=== PATIENT | male | born 1935 | race Asian ===

== ENCOUNTER 2017-03-07 08:42 | Emergency (ER) | payer MEDICARE, OTHER ==
[~2017-03-07] VITALS: Ht 162.6 cm; Wt 69.1 kg
[~2017-03-07 08:42] MED LIST: METF850T2 PO; ROSI4TAB28 PO; SIMV-259 PO
[2017-03-07] MEDS ORDERED: METO25XL PO (08:44)
[2017-03-07 09:33] LABS: BASOPHILS % (AUTO) 2.1 % (0.0-2.0); EOSINOPHILS % (AUTO) 2.7 % (1.0-6.0); HEMOGLOBIN 14.8 g/dL (13.5-17.5); LYMPHOCYTES # (AUTO) 1.4 K/uL (1.0-4.8); LYMPHOCYTES % (AUTO) 25.7 % (22.0-44.0); MEAN CORPUSCULAR HEMOGLOBIN 31.3 pg (26.0-34.0); MEAN CORPUSCULAR HGB CONC 33.6 G/dL (31.0-37.0); MEAN CORPUSCULAR VOLUME 93 fL (80-100); MONOCYTES # (AUTO) 0.5 K/uL (0.1-1.0); MONOCYTES % (AUTO) 8.9 % (2.0-9.0); NEUTROPHILS # (AUTO) 3.3 K/uL (1.8-7.7); NEUTROPHILS % (AUTO) 60.6 % (40.0-70.0); PLATELET COUNT (AUTO) 180 K/uL (150-450); RED BLOOD CELL COUNT(AUTO) 4.73 MIL/uL (4.50-5.90); WHITE BLOOD COUNT (AUTO) 5.4 K/uL (4.5-11.0)
[2017-03-07 09:43] LABS: GLUCOSE,POINT OF CARE 294 MG/DL (70-110)
[2017-03-07 09:53] LABS: CALCIUM, TOTAL 8.8 mg/dL (8.8-10.5); CREATININE 1.37 mg/dL (0.60-1.30); POTASSIUM 4.4 mmol/L (3.5-5.1)
[2017-03-07 09:58] LABS: BILIRUBIN,TOTAL 0.5 mg/dL (0.1-1.0); TOTAL PROTEIN, SERUM 7.9 g/dL (6.4-8.2)
[2017-03-07] MEDS ORDERED: IOVERSOL 350 MG/ML 100 ML VIAL ONE (10:25)
[2017-03-07] MEDS ORDERED: SODIUM CHLORIDE 0.9% 100 ML ONE (10:26)
[2017-03-07 10:51] VITALS: BP 146/84
[2017-03-07 11:48] LABS: GLUCOSE,POINT OF CARE 287 MG/DL (70-110)
== END 2017-03-07 11:37 | disposition home or self-care (01) ==
LOC: EMS 08:43
DX: R42 Dizziness and giddiness (principal); M54.2 Cervicalgia; H93.11 Tinnitus, right ear; E11.9 Type 2 diabetes mellitus without complications; I10 Essential (primary) hypertension
CPT/HCPCS: 36415; 70498; 80053; 82948; 82962; 84484; 85025; 93005; 99285; J7050; Q9967

== ENCOUNTER 2019-12-14 19:50 | Emergency (ER) | payer MEDICARE, OTHER ==
[~2019-12-14] VITALS: Ht 162.6 cm; Wt 63.6 kg
[~2019-12-14 19:50] MED LIST changes: +METF-445 PO; -METF850T2 PO; +METO25XL PO; -ROSI4TAB28 PO; -SIMV-259 PO
[2019-12-14 21:29] LABS: GLUCOSE,POINT OF CARE 267 MG/DL (70-110)
[2019-12-14 21:36] LABS: BASOPHILS % (AUTO) 0.5 % (0.0-2.0); EOSINOPHILS % (AUTO) 0 % (1.0-6.0); HEMATOCRIT 40.8 % (41-53); HEMOGLOBIN 13.5 g/dL (13.5-17.5); LYMPHOCYTES # (AUTO) 0.6 K/uL (1.0-4.8); LYMPHOCYTES % (AUTO) 5.3 % (22.0-44.0); MEAN CORPUSCULAR HEMOGLOBIN 31.5 pg (26.0-34.0); MEAN CORPUSCULAR HGB CONC 33.2 G/dL (31.0-37.0); MEAN CORPUSCULAR VOLUME 95 fL (80-100); MONOCYTES # (AUTO) 1.4 K/uL (0.1-1.0); MONOCYTES % (AUTO) 11.6 % (2.0-9.0); NEUTROPHILS # (AUTO) 9.7 K/uL (1.8-7.7); NEUTROPHILS % (AUTO) 82.6 % (40.0-70.0); PLATELET COUNT (AUTO) 161 K/uL (150-450); RED CELL DISTRIBUTION WIDTH 12.8 % (11.5-14.5)
[2019-12-14 22:15] LABS: CALCIUM, TOTAL 8.6 mg/dL (8.8-10.5); CREATININE 1.7 mg/dL (0.60-1.30); POTASSIUM 3.9 mmol/L (3.5-5.1)
[2019-12-14 22:21] LABS: ALBUMIN 3.8 g/dL (3.4-5.0); BILIRUBIN,TOTAL 0.9 mg/dL (0.1-1.0); TOTAL PROTEIN, SERUM 8.2 g/dL (6.4-8.2)
[2019-12-14 22:58] VITALS: BP 137/66
[2019-12-14 23:07] LABS: APPEARANCE,URINE CLOUDY (CLEAR); BILIRUBIN,URINE NEGATIVE (NEGATIVE); GLUCOSE, URINE (UA) >=1000 mg/dL (NEGATIVE); KETONES,URINE NEGATIVE (NEGATIVE); LEUKOCYTE ESTERASE ,URINE MODERATE (NEGATIVE); NITRATE,URINE NEGATIVE (NEGATIVE); OCCULT BLOOD,URINE LARGE (NEGATIVE); PROTEIN,URINE POS 1+ (NEGATIVE); UROBILINOGEN,URINE 0.2 mg/dL (<=1.0)
[2019-12-14 23:15] LABS: BACTERIA,URINE Many /HPF (None Seen); WBC,URINE 51-100 /HPF (0-5)
[2019-12-14 23:22] LABS: SQUAMOUS EPITHELIAL CELL,UR Few /LPF (None Seen)
[2019-12-15] MEDS ORDERED: LEVOFLOXACIN 500 MG TABLET PO ONE (00:15)
[2019-12-15] MEDS ORDERED: CEPHALEXIN MONOHYDRATE 500 MG CAPSULE PO ONE (00:15)
[2019-12-15] MEDS ORDERED: PHENAZOPYRIDINE HCL 100 MG TABLET PO ONE (00:15)
== END 2019-12-15 00:50 | disposition home or self-care (01) ==
LOC: EMS 19:50
DX: N39.0 Urinary tract infection, site not specified (principal); E11.65 Type 2 diabetes mellitus with hyperglycemia; N28.9 Disorder of kidney and ureter, unspecified; I10 Essential (primary) hypertension; Z79.84 Long term (current) use of oral hypoglycemic drugs
CPT/HCPCS: 87086

== ENCOUNTER → 2020-03-13 | Outpatient (CLI) | payer MEDICARE, OTHER ==
[~2020-03-13] MED LIST changes: +ASPI-728 PO; +ATOR10TA69 PO; +ATOR10TA84 PO; +ISOS30TA6 PO; +LEVO750T68 PO; -METF-445 PO; +PIOG15TA6 PO
== END | disposition home or self-care (01) ==
LOC: RADMN 09:31
PROVIDERS: ATTEND Neurological Surgery
DX: M50.222 Other cervical disc displacement at C5-C6 level (principal); M43.12 Spondylolisthesis, cervical region; M48.02 Spinal stenosis, cervical region; M89.38 Hypertrophy of bone, other site; M25.78 Osteophyte, vertebrae
CPT/HCPCS: 72141

== ENCOUNTER 2020-06-19 20:19 | Emergency (ER) | payer MEDICARE, OTHER ==
[~2020-06-19] VITALS: Ht 162.6 cm; Wt 68.6 kg
[2020-06-19 22:22] VITALS: BP 136/80
== END 2020-06-19 22:22 | disposition home or self-care (01) ==
LOC: EMS 20:19
DX: S13.9XXA Sprain of joints and ligaments of unspecified parts of neck, initial encounter (principal); S20.211A Contusion of right front wall of thorax, initial encounter; M13.811 Other specified arthritis, right shoulder; E11.9 Type 2 diabetes mellitus without complications; I10 Essential (primary) hypertension; Z79.82 Long term (current) use of aspirin; V49.9XXA Car occupant (driver) (passenger) injured in unspecified traffic accident, initial encounter; Y93.89 Activity, other specified; Y92.89 Other specified places as the place of occurrence of the external cause; Y99.8 Other external cause status
CPT/HCPCS: 70450; 72125; 71046; 71046-TC

== ENCOUNTER 2024-07-18 22:08 | Inpatient (IN) | payer MEDICARE, OTHER ==
[~2024-07-18] VITALS: Ht 162.6 cm; Wt 70.5 kg
[~2024-07-18 22:08] MED LIST changes: +ASPI-1450 PO; -ASPI-728 PO; +ATOR10TA PO; -ATOR10TA84 PO; -ISOS30TA6 PO; +ISOS30TA92 PO
[2024-07-18 22:55] LABS: GLUCOMETER DEV NAME(LOC) ERT.6; GLUCOSE,POINT OF CARE 171 MG/DL (70-110)
[2024-07-18 23:34] LABS: BASOPHILS % (AUTO) 0.9 % (0.0-2.0); EOSINOPHILS % (AUTO) 0.2 % (1.0-6.0); HEMATOCRIT 45.1 % (41-53); HEMOGLOBIN 14.8 g/dL (13.5-17.5); LYMPHOCYTES # (AUTO) 0.8 K/uL (1.0-4.8); LYMPHOCYTES % (AUTO) 16.2 % (22.0-44.0); MEAN CORPUSCULAR HEMOGLOBIN 31.4 pg (26.0-34.0); MEAN CORPUSCULAR HGB CONC 32.7 G/dL (31.0-37.0); MEAN CORPUSCULAR VOLUME 96 fL (80-100); MONOCYTES # (AUTO) 0.3 K/uL (0.1-1.0); MONOCYTES % (AUTO) 6.7 % (2.0-9.0); NEUTROPHILS # (AUTO) 3.9 K/uL (1.8-7.7); PLATELET COUNT (AUTO) 165 K/uL (150-450); RED CELL DISTRIBUTION WIDTH 13.7 % (11.5-14.5); WHITE BLOOD COUNT (AUTO) 5.2 K/uL (4.5-11.0)
[2024-07-18] MEDS: MECLIZINE HCL 25 MG TABLET PO ONE (23:42)
[2024-07-18 23:43] LABS: ANION GAP 14 mmol/L (8-16); CALCIUM, TOTAL 8.4 mg/dL (8.8-10.5); CARBON DIOXIDE 24 mmol/L (22-29); CHLORIDE 102 mmol/L (98-107); CREATININE 1.77 mg/dL (0.60-1.30); GLOMERULAR FILTR. RATE CALC 37 mL/min (>60); GLUCOSE,RANDOM 181 mg/dL (70-110); POTASSIUM 5.1 mmol/L (3.5-5.1); SODIUM SERUM 140 mmol/L (136-145); UREA NITROGEN, BLOOD 34 mg/dL (7-18)
[2024-07-18 23:55] LABS: B-TYPE NATRIURETIC PEPTIDE 262 pg/mL (0-100)
[2024-07-19 00:03] LABS: TROPONIN I-HIGH SENSITIVITY 178 ng/L (<76)
[2024-07-19 02:11] LABS: TROPONIN I-HIGH SENSITIVITY 196 ng/L (<76)
[2024-07-19 07:30] LABS: APPEARANCE,URINE CLEAR (CLEAR); BILIRUBIN,URINE NEGATIVE (NEGATIVE); COLOR,URINE LIGHT YELLOW (YELLOW); GLUCOSE, URINE (UA) >=1000 mg/dL (NEGATIVE); KETONES,URINE 40-60 mg/dL (NEGATIVE); LEUKOCYTE ESTERASE ,URINE NEGATIVE (NEGATIVE); NITRATE,URINE NEGATIVE (NEGATIVE); OCCULT BLOOD,URINE NEGATIVE (NEGATIVE); PROTEIN,URINE 30-70 mg/dL (NEGATIVE); UROBILINOGEN,URINE <=1.0 mg/dL (<=1.0)
[2024-07-19 07:37] LABS: BACTERIA,URINE None Seen /HPF (None Seen); RBC,URINE None Seen /HPF (0-2); SQUAMOUS EPITHELIAL CELL,UR Few /LPF (None Seen); WBC,URINE None Seen /HPF (0-5)
[2024-07-19 10:11] LABS: GLUCOMETER DEV NAME(LOC) ER.7; GLUCOSE,POINT OF CARE 159 MG/DL (70-110)
[2024-07-19 10:11] LABS: GLUCOMETER DEV NAME(LOC) ER.7; GLUCOSE,POINT OF CARE 149 MG/DL (70-110)
[2024-07-19 15:00] VITALS: BP 126/64; PULSE 74; RESP 18; TEMP 97.7; O2SAT 98
[2024-07-19] MEDS ORDERED: IPRATROPIUM BROMIDE 0.5 MG/2.5 ML NEB SOLUTION NEB PRN (15:45)
[2024-07-19] MEDS ORDERED: ZOLPIDEM TARTRATE 5 MG TABLET PO PRN (15:45)
[2024-07-19] MEDS ORDERED: MAGNESIUM HYDROXIDE SUSPENSION 30 ML UDCUP PO PRN (15:45)
[2024-07-19] MEDS ORDERED: HYDROCODONE/ACETAMINOPHEN 5-325 MG TABLET PO PRN (15:45)
[2024-07-19] MEDS ORDERED: ONDANSETRON HCL 4 MG/2 ML VIAL IVP PRN (15:45)
[2024-07-19] MEDS ORDERED: ALBUTEROL SULFATE 2.5 MG/0.5 ML NEB SOLUTION NEB PRN (15:45)
[2024-07-19] MEDS ORDERED: BISACODYL 10 MG RECTAL RECTAL SUPPOSITORY PR PRN (15:45)
[2024-07-19] MEDS ORDERED: ACETAMINOPHEN 325 MG TABLET PO PRN (15:45)
[2024-07-19] MEDS ORDERED: MORPHINE SULFATE 2 MG/ML SYRINGE IVP PRN (15:45)
[2024-07-19] MEDS: HEPARIN SODIUM,PORCINE 5,000 UNITS/ML VIAL SQ SCH (16:24)
[2024-07-19] MEDS ORDERED: INSULIN LISPRO 100 UNITS/ML SQ PRN (16:45)
[2024-07-19] MEDS ORDERED: DEXTROSE 50%-WATER 25 GM/50 ML SYRINGE IVP PRN ×2 (16:45→17:15)
[2024-07-19] MEDS: INSULIN LISPRO 100 UNITS/ML SQ PRN (17:11)
[2024-07-19 20:00] VITALS: BP 106/46; PULSE 100; RESP 18; TEMP 98.7; O2SAT 100
[2024-07-19] MEDS: METOPROLOL SUCCINATE 25 MG ER TABLET PO SCH (21:00)
[2024-07-19 23:45] VITALS: BP 124/76; PULSE 80; RESP 18; TEMP 98.1; O2SAT 96
[2024-07-20 03:46] LABS: GLUCOMETER DEV NAME(LOC) 5N.2C; GLUCOSE,POINT OF CARE 409 MG/DL (70-110)
[2024-07-20 03:46] LABS: GLUCOMETER DEV NAME(LOC) 5N.2C; GLUCOSE,POINT OF CARE 100 MG/DL (70-110)
[2024-07-20 04:00] VITALS: BP 140/51; PULSE 82; RESP 18; TEMP 98; O2SAT 98
[2024-07-20] MEDS: MECLIZINE HCL 25 MG TABLET PO PRN (07:01)
[2024-07-20 08:35] VITALS: BP 119/69; PULSE 85; RESP 18; TEMP 98.1; O2SAT 98
[2024-07-20] MEDS: PIOGLITAZONE HCL 15 MG TABLET PO SCH (08:42)
[2024-07-20] MEDS: ATORVASTATIN CALCIUM 10 MG TABLET PO SCH (08:43)
[2024-07-20] MEDS: ASPIRIN 81 MG CHEWABLE TABLET PO SCH (08:43)
[2024-07-20] MEDS: ISOSORBIDE MONONITRATE 30 MG ER TABLET PO SCH (08:43)
[2024-07-20] MEDS: INSULIN GLARGINE,HUM.REC.ANLOG 100 UNITS/ML SQ SCH (08:50)
[2024-07-20 11:08] VITALS: BP 131/68; PULSE 71; RESP 19; TEMP 98.2; O2SAT 100
[2024-07-20 14:36] LABS: GLUCOMETER DEV NAME(LOC) 5N.2C; GLUCOSE,POINT OF CARE 172 MG/DL (70-110)
[2024-07-20 14:36] LABS: GLUCOMETER DEV NAME(LOC) 5S.2D; GLUCOSE,POINT OF CARE 228 MG/DL (70-110)
[2024-07-20 15:23] VITALS: BP 107/65; PULSE 69; RESP 18; TEMP 98.2; O2SAT 100
[2024-07-20 18:10] LABS: GLUCOMETER DEV NAME(LOC) 5N.1D; GLUCOSE,POINT OF CARE 225 MG/DL (70-110)
[2024-07-20 20:26] VITALS: BP 113/60; PULSE 66; RESP 18; TEMP 98.1; O2SAT 97
[2024-07-20 23:10] VITALS: BP 118/57; PULSE 65; RESP 19; TEMP 97.8; O2SAT 96
[2024-07-21 00:41] LABS: GLUCOMETER DEV NAME(LOC) 5S.2D; GLUCOSE,POINT OF CARE 143 MG/DL (70-110)
[2024-07-21 04:37] VITALS: BP 128/64; PULSE 69; RESP 18; TEMP 97.9; O2SAT 100
[2024-07-21 07:05] LABS: BASOPHILS % (AUTO) 1.1 % (0.0-2.0); EOSINOPHILS % (AUTO) 4.3 % (1.0-6.0); HEMATOCRIT 41.6 % (41-53); HEMOGLOBIN 13.7 g/dL (13.5-17.5); LYMPHOCYTES # (AUTO) 1.9 K/uL (1.0-4.8); LYMPHOCYTES % (AUTO) 39.2 % (22.0-44.0); MEAN CORPUSCULAR HEMOGLOBIN 31.6 pg (26.0-34.0); MEAN CORPUSCULAR VOLUME 96 fL (80-100); MONOCYTES # (AUTO) 0.7 K/uL (0.1-1.0); MONOCYTES % (AUTO) 14.8 % (2.0-9.0); NEUTROPHILS # (AUTO) 1.9 K/uL (1.8-7.7); NEUTROPHILS % (AUTO) 40.6 % (40.0-70.0); PLATELET COUNT (AUTO) 132 K/uL (150-450); RED BLOOD CELL COUNT(AUTO) 4.35 MIL/uL (4.50-5.90); RED CELL DISTRIBUTION WIDTH 13.5 % (11.5-14.5); WHITE BLOOD COUNT (AUTO) 4.7 K/uL (4.5-11.0)
[2024-07-21 07:27] LABS: CALCIUM, TOTAL 8.3 mg/dL (8.8-10.5); CREATININE 1.81 mg/dL (0.60-1.30); POTASSIUM 4.3 mmol/L (3.5-5.1)
[2024-07-21 08:14] VITALS: BP 128/62; PULSE 64; RESP 18; TEMP 97.4; O2SAT 99
[2024-07-21] MEDS ORDERED: MECL-302 PO (11:03)
[2024-07-21 11:46] LABS: GLUCOMETER DEV NAME(LOC) 5N.1D; GLUCOSE,POINT OF CARE 146 MG/DL (70-110)
[2024-07-21 13:03] VITALS: BP 108/59; PULSE 63; RESP 17; TEMP 97.9; O2SAT 99
[2024-07-21 20:51] LABS: GLUCOMETER DEV NAME(LOC) 5N.1D; GLUCOSE,POINT OF CARE 201 MG/DL (70-110)
== END 2024-07-21 15:55 | disposition home health service (06) | DRG 74 ==
LOC: EMS 22:08 → EDH 07-19 07:07 → 5S 07-19 14:25
PROVIDERS: ADMIT Hospitalist; ATTEND Hospitalist
DX: G90.9 Disorder of the autonomic nervous system, unspecified (principal); E11.9 Type 2 diabetes mellitus without complications; I10 Essential (primary) hypertension; H81.13 Benign paroxysmal vertigo, bilateral; N28.9 Disorder of kidney and ureter, unspecified; Z86.73 Personal history of transient ischemic attack (TIA), and cerebral infarction without residual deficits
CPT/HCPCS: 70450; 70551; 71045; 80048; 81001; 82962; 83880; 84484; 85025; 93005; 93306; 93880; 97112; 97163; 97165; 97535; 99285; J1644; J1815; 36415-L1; 36415-TC